=== PATIENT | female | born 1960 | race Caucasian/White ===

== ENCOUNTER 2021-01-17 17:12 | Emergency (ER) | payer SELFPAY ==
[~2021-01-17] VITALS: Ht 167.6 cm; Wt 77.0 kg
[2021-01-17 21:42] VITALS: BP 128/85
== END 2021-01-17 20:50 | disposition home or self-care (01) ==
LOC: ER 17:12
DX: R09.89 Other specified symptoms and signs involving the circulatory and respiratory systems (principal); I10 Essential (primary) hypertension; E11.9 Type 2 diabetes mellitus without complications
CPT/HCPCS: 70360; 71045; 99284